=== PATIENT | female | born 1950 | race Two or more races ===

== ENCOUNTER 2018-01-06 14:03 | Outpatient (CLI) | payer OTHER | END 2018-01-06 14:12 | disposition home or self-care (01) | LOC: RAD 501 14:03 | DX: K59.09 Other constipation (principal); R10.84 Generalized abdominal pain ==

== ENCOUNTER 2022-04-30 13:29 | Inpatient (IN) | payer OTHER ==
[~2022-04-30] VITALS: Ht 170.2 cm; Wt 93.9 kg
[2022-05-05] MEDS ORDERED: ZARONTIN250 MG PO (08:57)
[2022-05-05] MEDS ORDERED: TRILEPTAL600 MG PO (08:57)
[2022-05-05] MEDS ORDERED: LEVO-T112 MCG PO (08:58)
== END 2022-05-24 12:45 | disposition home or self-care (01) | DRG 355 ==
LOC: SURG 05-08 07:30 → O/R 05-22 10:38 → SURG 05-22 10:38
PROVIDERS: ADMIT Surgery; ATTEND Surgery
PROC: 0WJF4ZZ Inspection of Abdominal Wall, Percutaneous Endoscopic Approach (ICD-10-PCS; 2022-05-22)
PROC: 0WUF0JZ Supplement Abdominal Wall with Synthetic Substitute, Open Approach (ICD-10-PCS; principal; 2022-05-22 09:45)
DX: K43.0 Incisional hernia with obstruction, without gangrene (principal); Z20.822 Contact with and (suspected) exposure to COVID-19